=== PATIENT | male | born 1980 | race African-American/Black ===

== ENCOUNTER 2016-10-02 10:10 | Emergency (ER) | payer MEDICAID | END 2016-10-02 12:51 | disposition home or self-care (01) | LOC: ED 10:10 | DX: R50.9 Fever, unspecified (principal); I10 Essential (primary) hypertension; Z76.0 Encounter for issue of repeat prescription | CPT/HCPCS: 99283 ==

== ENCOUNTER 2017-02-12 18:52 | Emergency (ER) | payer MEDICAID ==
[~2017-02-12] VITALS: Ht 182.9 cm; Wt 95.9 kg
[2017-02-12 18:54] VITALS: BP 124/77
[2017-02-12] MEDS: LIDOCAINE 1%, 20ML SQ ONE (19:30)
[2017-02-12] MEDS ORDERED: LIDOCAINE 1%, 20ML ONE (19:35)
== END 2017-02-12 20:17 | disposition home or self-care (01) ==
LOC: ED 20:00
DX: L03.116 Cellulitis of left lower limb (principal); I10 Essential (primary) hypertension
CPT/HCPCS: 10060; 99283

== ENCOUNTER 2017-06-12 08:51 | Emergency (ER) | payer MEDICAID ==
[~2017-06-12] VITALS: Ht 182.9 cm; Wt 88.9 kg
[2017-06-12 09:48] VITALS: BP 123/84
== END 2017-06-12 09:52 | disposition home or self-care (01) ==
LOC: ED 09:30
DX: H66.91 Otitis media, unspecified, right ear (principal); H60.91 Unspecified otitis externa, right ear; I10 Essential (primary) hypertension; F17.210 Nicotine dependence, cigarettes, uncomplicated
CPT/HCPCS: 99283